=== PATIENT | female | born 1990 | race Caucasian/White ===

== ENCOUNTER 2020-04-16 21:52 | Emergency (ER) | payer OTHER ==
[~2020-04-16] VITALS: Ht 162.6 cm; Wt 52.2 kg
[2020-04-16] MEDS ORDERED: AUGMENTIN PO (22:50)
[2020-04-16] MEDS ORDERED: INTESTINEX680 M2 PO (22:50)
[2020-04-16] MEDS ORDERED: KETO10TA2 PO (22:50)
== END 2020-04-16 22:57 | disposition home or self-care (01) ==
LOC: ER 21:52
DX: K04.7 Periapical abscess without sinus (principal)

== ENCOUNTER 2021-01-16 14:44 | Inpatient (IN) | payer OTHER ==
[~2021-01-16] VITALS: Ht 160 cm; Wt 56.7 kg
[~2021-01-16 14:44] MED LIST: AUGMENTIN PO; INTESTINEX680 M2 PO; KETO10TA2 PO
[2021-01-17] MEDS ORDERED: CODE1TAB37 PO (08:20)
[2021-01-17] MEDS ORDERED: IBUPROFEN800 MG PO (08:20)
== END 2021-01-17 16:08 | disposition home or self-care (01) | DRG 819 ==
LOC: ER 14:44 → OB/GYN 20:11 → O/R 20:11 → SEC-K 20:11 → O/R 21:19 → OB/GYN 22:38
PROVIDERS: ADMIT Obstetrics & Gynecology; ATTEND Obstetrics & Gynecology
PROC: 10D27ZZ Extraction of Products of Conception, Ectopic, Via Natural or Artificial Opening (ICD-10-PCS; 2021-01-16)
PROC: 0UB50ZZ Excision of Right Fallopian Tube, Open Approach (ICD-10-PCS; principal; 2021-01-16 21:15)
DX: O00.101 Right tubal pregnancy without intrauterine pregnancy (principal); Z20.822 Contact with and (suspected) exposure to COVID-19

== ENCOUNTER → 2023-08-17 | Emergency (ER) | payer OTHER ==
[~2023-08-17] VITALS: Ht 160 cm; Wt 49.9 kg
[~2023-08-17] MED LIST changes: +CODE1TAB37 PO; +IBUPROFEN800 MG PO
== END | disposition left against medical advice (07) ==
LOC: ER 00:06
DX: Z53.21 Procedure and treatment not carried out due to patient leaving prior to being seen by health care provider (principal)